=== PATIENT | female | born 1935 | race Caucasian/White ===

== ENCOUNTER 2022-02-06 08:45 | Observation (INO) | payer BC, MEDICARE, OTHER ==
[~2022-02-06] VITALS: Ht 149.9 cm; Wt 48.1 kg
[2022-02-06] MEDS ORDERED: SODIUM CHLORIDE 0.9% 1000ML 1,000 ML IV STA (09:13)
[2022-02-06 09:18] LABS: BASOPHILS % 0.1 % (0.0-1.0); EOSINOPHILS # (AUTO) 0.3 (0.0-0.4); EOSINOPHILS % 1.6 % (0.0-6.0); HEMATOCRIT 33.6 % (34.2-44.1); HEMOGLOBIN 10.7 g/dL (12.0-16.0); LYMPHOCYTES # (AUTO) 0.5 (1.0-3.2); LYMPHOCYTES % 3.2 % (18.0-39.1); MEAN CORPUSCULAR HEMOGLOBIN 29.9 pg (28-32); MEAN CORPUSCULAR HGB CONC 31.8 g/dL (31-35); MEAN CORPUSCULAR VOLUME 93.9 fL (81-99); MONOCYTES # (AUTO) 0.9 (0.2-0.8); MONOCYTES % 5.4 % (4.4-11.3); NEUTROPHILS # (AUTO) 14.5 (2.1-6.9); NEUTROPHILS % 89.3 % (38.7-80.0); PLATELET COUNT 259 x10e3/uL (140-360); RED BLOOD COUNT 3.58 x10e6/uL (3.6-5.1); RED CELL DISTRIBUTION WIDTH 13.6 % (11.7-14.4)
[2022-02-06 09:24] LABS: INR 0.95; PROTHROMBIN TIME 13.6 seconds (11.9-14.5)
[2022-02-06 09:25] LABS: PARTIAL THROMBOPLASTIN TIME 25.3 seconds (23.8-35.5)
[2022-02-06 09:35] LABS: ALBUMIN 3.4 g/dL (3.5-5.0); ALBUMIN/GLOBULIN RATIO 0.9 (0.8-2.0); ANION GAP 16.5 mmol/L (8-16); CALCIUM 8.8 mg/dL (8.4-10.2); CREATININE, SERUM 0.95 mg/dL (0.57-1.11); MAGNESIUM 1.6 MG/DL (1.3-2.1); POTASSIUM 4.5 mmol/L (3.5-5.1)
[2022-02-06 09:42] LABS: CREATINE KINASE MB 5.6 ng/mL (0-5.0)
[2022-02-06] MEDS ORDERED: DEXAMETHASONE SOD PHOS 10 MG/1 ML VIAL IV ONE (09:45)
[2022-02-06 09:51] LABS: CLARITY,URINE CLEAR (CLEAR); COLOR,URINE YELLOW (YELLOW); KETONES,URINE NEGATIVE (NEGATIVE); LEUKOCYTE ESTERASE ,URINE NEGATIVE (NEGATIVE); NITRITE,URINE NEGATIVE (NEGATIVE); PROTEIN,URINE DIPSTICK NEGATIVE (NEGATIVE); URINE UROBILINOGEN 0.2 mg/dL (0.2 - 1)
[2022-02-06] MEDS: CEFTRIAXONE 2 GM in SODIUM CHLORIDE 0.9% 100 ML IV SCH (10:00)
[2022-02-06 10:17] LABS: BACTERIA,URINE RARE /HPF; EPITHELIAL CELLS,URINE RARE /LPF; WBC,URINE (MAN) 0-5 /HPF (0-5)
[2022-02-06] MEDS ORDERED: ALBUTEROL/IPRATROPIUM 3 ML NEB NEB ONE (10:30)
[2022-02-06] MEDS ORDERED: SODIUM CHLORIDE 0.9% 1000ML 1,000 ML IV ONE (10:45)
[2022-02-06] MEDS ORDERED: ALBUTEROL/IPRATROPIUM 3 ML NEB NEB PRN (10:45)
[2022-02-06] MEDS ORDERED: IPRATROPIUM BROMIDE 0.02% 2.5 ML NEB NEB PRN (11:00)
[2022-02-06] MEDS ORDERED: IBUPROFEN 800MG/ 200ML 800 MG in SODIUM CHLORIDE 0.9% 250ML 250 ML IV ONE (11:00)
[2022-02-06] MEDS ORDERED: LEVALBUTEROL HCL SOLN NEBU 0.63 MG/3 ML NEB INH PRN (11:00)
[2022-02-06] MEDS ORDERED: ACETAMINOPHEN 325 MG TAB PO PRN (11:00)
[2022-02-06] MEDS ORDERED: IBUPROFEN 800MG/ 200ML 200 ML IV ONE (11:48)
[2022-02-06 13:27] VITALS: BP 120/67
[2022-02-06 13:41] VITALS: BP 120/67
[2022-02-06 13:42] VITALS: BP 120/67
[2022-02-06] MEDS: METHYLPREDNISOLONE SOD SUCC 125 MG/2ML VIAL IV SCH ×2 (14:56→21:07)
[2022-02-06 16:44] VITALS: BP 145/68
[2022-02-06 17:08] LABS: CREATINE KINASE 100 IU/L (29-168)
[2022-02-06 20:00] VITALS: BP 126/71
[2022-02-06 23:30] VITALS: BP 124/66
[2022-02-07] VITALS (7 sets, daily range): BP systolic 124–147; BP diastolic 69–79
[2022-02-07 05:47] LABS: BASOPHILS % 0.1 % (0.0-1.0); EOSINOPHILS # (AUTO) 0.1 (0.0-0.4); EOSINOPHILS % 0.8 % (0.0-6.0); HEMATOCRIT 28.5 % (34.2-44.1); HEMOGLOBIN 8.8 g/dL (12.0-16.0); LYMPHOCYTES % 8.5 % (18.0-39.1); MEAN CORPUSCULAR HEMOGLOBIN 29.3 pg (28-32); MEAN CORPUSCULAR HGB CONC 30.9 g/dL (31-35); MONOCYTES # (AUTO) 0.2 (0.2-0.8); MONOCYTES % 1.3 % (4.4-11.3); NEUTROPHILS # (AUTO) 10.6 (2.1-6.9); NEUTROPHILS % 88.8 % (38.7-80.0); PLATELET COUNT 227 x10e3/uL (140-360); RED CELL DISTRIBUTION WIDTH 13.7 % (11.7-14.4)
[2022-02-07 06:13] LABS: ALBUMIN 2.9 g/dL (3.5-5.0); ALBUMIN/GLOBULIN RATIO 0.9 (0.8-2.0); ANION GAP 14.9 mmol/L (8-16); CALCIUM 8.3 mg/dL (8.4-10.2); CREATININE, SERUM 0.81 mg/dL (0.57-1.11); POTASSIUM 3.9 mmol/L (3.5-5.1)
[2022-02-07] MEDS: METHYLPREDNISOLONE SOD SUCC 125 MG/2ML VIAL IV SCH (06:39)
[2022-02-07] MEDS: CEFTRIAXONE 2 GM in SODIUM CHLORIDE 0.9% 100 ML IV SCH (09:06)
[2022-02-07] MEDS: ACETAMINOPHEN 325 MG/10 ML UDC PO PRN (12:36)
[2022-02-07 14:18] LABS: CREATINE KINASE MB 5.1 ng/mL (0-5.0)
[2022-02-08] VITALS (8 sets, daily range): BP systolic 137–157; BP diastolic 64–86
[2022-02-08 04:59] LABS: BASOPHILS % 0.1 % (0.0-1.0); EOSINOPHILS # (AUTO) 0.6 (0.0-0.4); EOSINOPHILS % 4.8 % (0.0-6.0); HEMOGLOBIN 9.1 g/dL (12.0-16.0); LYMPHOCYTES # (AUTO) 2.5 (1.0-3.2); LYMPHOCYTES % 20.6 % (18.0-39.1); MEAN CORPUSCULAR HEMOGLOBIN 29.4 pg (28-32); MEAN CORPUSCULAR HGB CONC 31.4 g/dL (31-35); MEAN CORPUSCULAR VOLUME 93.9 fL (81-99); MONOCYTES # (AUTO) 0.9 (0.2-0.8); MONOCYTES % 7.7 % (4.4-11.3); NEUTROPHILS # (AUTO) 8.1 (2.1-6.9); NEUTROPHILS % 66.5 % (38.7-80.0); PLATELET COUNT 247 x10e3/uL (140-360); RED BLOOD COUNT 3.09 x10e6/uL (3.6-5.1); RED CELL DISTRIBUTION WIDTH 13.9 % (11.7-14.4)
[2022-02-08 05:16] LABS: ANION GAP 14.4 mmol/L (8-16); CALCIUM 8.3 mg/dL (8.4-10.2); CREATININE, SERUM 0.8 mg/dL (0.57-1.11); POTASSIUM 3.4 mmol/L (3.5-5.1)
[2022-02-08 05:43] LABS: FERRITIN 65.92 ng/mL (4.63-204.00)
[2022-02-08] MEDS: MULTIVITAMINS/MINERALS TAB PO SCH (08:22)
[2022-02-08] MEDS: CEFTRIAXONE 2 GM in SODIUM CHLORIDE 0.9% 100 ML IV SCH (08:22)
[2022-02-08] MEDS: FAMOTIDINE 20 MG TAB PO SCH (08:22)
[2022-02-08] MEDS ORDERED: SOD CHL 0.45%/POT CHL 20MEQ 1,000 ML IV SCH (08:30)
[2022-02-08] MEDS ORDERED: ASCORBIC ACID 500 MG TAB PO ONE (11:00)
[2022-02-08] MEDS: IRON SUCROSE 100 MG in SODIUM CHLORIDE 0.9% 100 ML IV SCH (11:52)
[2022-02-08] MEDS ORDERED: METHYLPREDNISOLONE SOD SUCC 40 MG/ML VIAL 1ML IV ONE (12:30)
[2022-02-08] MEDS: ACETAMINOPHEN 325 MG/10 ML UDC PO PRN (22:16)
[2022-02-09] VITALS: BP 147/79
[2022-02-09 04:00] VITALS: BP 151/70
[2022-02-09 05:50] LABS: BASOPHILS % 0.3 % (0.0-1.0); EOSINOPHILS # (AUTO) 0.5 (0.0-0.4); EOSINOPHILS % 4.2 % (0.0-6.0); HEMATOCRIT 31.1 % (34.2-44.1); HEMOGLOBIN 9.6 g/dL (12.0-16.0); LYMPHOCYTES # (AUTO) 2.2 (1.0-3.2); LYMPHOCYTES % 18.2 % (18.0-39.1); MEAN CORPUSCULAR HEMOGLOBIN 30.1 pg (28-32); MEAN CORPUSCULAR HGB CONC 30.9 g/dL (31-35); MEAN CORPUSCULAR VOLUME 97.5 fL (81-99); MONOCYTES % 8.6 % (4.4-11.3); NEUTROPHILS # (AUTO) 8.2 (2.1-6.9); NEUTROPHILS % 68.4 % (38.7-80.0); PLATELET COUNT 243 x10e3/uL (140-360); RED BLOOD COUNT 3.19 x10e6/uL (3.6-5.1); RED CELL DISTRIBUTION WIDTH 13.7 % (11.7-14.4)
[2022-02-09 06:23] LABS: MAGNESIUM 1.8 MG/DL (1.3-2.1); PHOSPHORUS 2.3 MG/DL (2.3-4.7)
[2022-02-09 06:25] LABS: ALBUMIN 3.1 g/dL (3.5-5.0); ALBUMIN/GLOBULIN RATIO 0.9 (0.8-2.0); ANION GAP 15.9 mmol/L (8-16); CALCIUM 8.4 mg/dL (8.4-10.2); CREATININE, SERUM 0.76 mg/dL (0.57-1.11); POTASSIUM 3.9 mmol/L (3.5-5.1)
[2022-02-09 08:23] VITALS: BP 153/76
[2022-02-09] MEDS ORDERED: ASCORBIC ACID 500 MG TAB PO SCH (09:00)
[2022-02-09 09:01] VITALS: BP 153/76
[2022-02-09] MEDS: NYSTATIN/TRIAMCINOLONE 30 GM CR TOP SCH ×2 (09:15→14:28)
[2022-02-09] MEDS ORDERED: ASCORBIC ACID500 MG PO (09:34)
[2022-02-09] MEDS ORDERED: IPRATROPIU0.2 MG/1 M NEB (09:34)
[2022-02-09] MEDS ORDERED: Nystatin/Triamcinolone TOP (09:34)
[2022-02-09] MEDS ORDERED: Multivitamins/Minerals PO (09:34)
[2022-02-09] MEDS ORDERED: CEFUROXIME250 MG PO (09:34)
[2022-02-09] MEDS ORDERED: XOPENEX0.63 MG/3 INH ×2 (09:34→10:08)
[2022-02-09] MEDS ORDERED: ACETAMINOP325 MG/10 PO (09:34)
[2022-02-09] MEDS ORDERED: AZITHROMYCIN500 MG PO (09:34)
[2022-02-09] MEDS: MULTIVITAMINS/MINERALS TAB PO SCH (09:39)
[2022-02-09] MEDS: FAMOTIDINE 20 MG TAB PO SCH (09:40)
[2022-02-09] MEDS ORDERED: FERROUS SULFAT325 M1 PO (09:47)
[2022-02-09] MEDS: CEFTRIAXONE 2 GM in SODIUM CHLORIDE 0.9% 100 ML IV SCH (09:52)
[2022-02-09 11:03] VITALS: BP 144/69
[2022-02-09] MEDS: IRON SUCROSE 100 MG in SODIUM CHLORIDE 0.9% 100 ML IV SCH (14:05)
[2022-02-10] MEDS ORDERED: AZITHROMYCIN 250 MG TAB PO SCH (09:00)
== END 2022-02-09 15:50 | disposition home or self-care (01) ==
LOC: ER 09:00 → ERHOLD 10:41 → INTOOBSV 10:41 → MED/SURG3 12:39 → MED/SURG2 12:45
PROVIDERS: ADMIT Internal Medicine; ATTEND Internal Medicine
DX: A41.9 Sepsis, unspecified organism (principal); J18.0 Bronchopneumonia, unspecified organism; J84.10 Pulmonary fibrosis, unspecified; J44.0 Chronic obstructive pulmonary disease with (acute) lower respiratory infection; I21.A1 Myocardial infarction type 2; D64.9 Anemia, unspecified; Z20.822 Contact with and (suspected) exposure to COVID-19; D63.8 Anemia in other chronic diseases classified elsewhere; E04.1 Nontoxic single thyroid nodule; M40.294 Other kyphosis, thoracic region; R00.1 Bradycardia, unspecified; D50.9 Iron deficiency anemia, unspecified; E87.6 Hypokalemia
CPT/HCPCS: 36415; 71045; 71250; 80048; 80053; 81001; 82550; 82553; 82728; 82948; 83540; 83605; 83735; 83880; 84100; 84466; 84484; 85025; 85610; 85730; 87040; 87086; 93005; 93306; 94640; 94760; 94799; 96365; 99284; G0378; J0456; J0696; J1100; J1756; J2920; J2930; J7030; J7050